=== PATIENT | male | born 1980 | race African-American/Black ===

== ENCOUNTER 2016-06-15 14:36 | Emergency (ER) | payer SELFPAY ==
[~2016-06-15] VITALS: Ht 188 cm; Wt 83.9 kg
--- NOTE | 2016-06-15 15:35 | Emergency Room Report ---
History of Present Illness General Chief Complaint: Behavioral Complaint Source: Patient Present Illness HPI This patient is brought in by [place]. They were called to the street because George was behaving bizarrely. Apparently he was rolling around in trash and dog poop. He is homeless. He has a history of schizophrenia. He's disorganized. He states that he made a mistake. He also took different doses of his medications. He states this includes ibuprofen and Trileptal. He also has PTSD. He has no specific complaints. Allergies: Coded Allergies: No Known Allergies (Unverified , 06/15/16) Patient History Past Medical History: seizures, psych hx - schizophrenia, PTSD, other Social History: Reports: alcohol use, drug use Reviewed Nursing Documentation: PMH: Agreed, PSxH: Agreed Nursing Documentation-PMH Past Medical History: No History, Except For History Of Psychiatric Problem: Yes - Schizophrenia Hx Seizures: Yes Review of Systems All Other Systems: negative except mentioned in HPI Physical Exam Vital Signs Date Time Temp Pulse Resp B/P Pulse Ox O2 Delivery O2 Flow Rate FiO2 06/15/16 14:45 98.1 96 18 121/74 97 Room Air Sp02 EP Interpretation: reviewed, normal General Appearance: no apparent distress, alert, GCS 15, non-toxic, other - Discheveled. In undergarments. Poor hygiene, dog poop on skin and in hair. Head: normocephalic, atraumatic Eyes: bilateral eye PERRL, bilateral eye normal inspection ENT: hearing grossly normal, normal pharynx, no angioedema, normal voice Neck: full range of motion, supple/symm/no masses Respiratory: chest non-tender, lungs clear, normal breath sounds, speaking full sentences Cardiovascular #1: regular rate, rhythm, no edema Gastrointestinal: normal bowel sounds, non tender, soft, non-distended, no guarding, no rebound Rectal: deferred Musculoskeletal: back normal, gait/station normal, normal range of motion, non- tender Neurologic: alert, oriented x3, responsive, motor strength/tone normal, sensory intact, speech normal Psychiatric: memory normal, other - disorganized thought and speech Skin: normal color, no rash, warm/dry, well hydrated Medical Decision Making Diagnostic Impression: Primary Impression: Drug abuse Additional Impression: Schizophrenia ER Course This patient presented with bizarre behavior. He was pleasant and compliant during his ED course. He was given a shower to clean him up and clean clothing and a meal. I did do basic labs to include CBC, CMP, urine drug screen and tox screen to include acetaminophen and salicylates. Other than the urine drug screen that is positive for amphetamines, the laboratory workup is benign. I suspect this is the medics of drug abuse and schizophrenia. The patient is not homicidal or suicidal. He is walking and ambulating without difficulty. He is requesting food. He is not in any distress. He was given the local psychiatric and drug rehabilitation resources and assisted information. At this time, I did not identify an emergency medical condition. Patient is educated on the dangers of drug abuse. He was given return precautions and followup instructions. Labs Test 06/15/16 15:30 06/15/16 16:16 White Blood Count 11.2 K/UL (4.8-10.8) Red Blood Count 4.51 M/UL (4.70-6.10) Hemoglobin 14.4 G/DL (14.2-18.0) Hematocrit 42.3 % (42.0-52.0) Mean Corpuscular Volume 94 FL (80-99) Mean Corpuscular Hemoglobin 31.9 PG (27.0-31.0) Mean Corpuscular Hemoglobin Concent 34.1 G/DL (32.0-36.0) Red Cell Distribution Width 11.9 % (11.6-14.8) Platelet Count 227 K/UL (150-450) Mean Platelet Volume 6.4 FL (6.5-10.1) Neutrophils (%) (Auto) 74.9 % (45.0-75.0) Lymphocytes (%) (Auto) 10.0 % (20.0-45.0) Monocytes (%) (Auto) 10.0 % (1.0-10.0) Eosinophils (%) (Auto) 3.9 % (0.0-3.0) Basophils (%) (Auto) 1.3 % (0.0-2.0) Sodium Level 138 mEQ/L (135-145) Potassium Level 4.0 mEQ/L (3.4-4.9) Chloride Level 98 mEQ/L (98-107) Carbon Dioxide Level 26 mEQ/L (20-30) Anion Gap 14 (5-15) Blood Urea Nitrogen 28 mg/dL (7-23) Creatinine 1.0 mg/dL (0.7-1.2) Estimat Glomerular Filtration Rate > 60 mL/min (>60) Glucose Level 128 mg/dL (74-106) Calcium Level 9.0 mg/dL (8.6-10.2) Total Bilirubin 0.6 mg/dL (0.0-1.2) Aspartate Amino Transf (AST/SGOT) 54 U/L (5-40) Alanine Aminotransferase (ALT/SGPT) 33 U/L (3-41) Alkaline Phosphatase 66 U/L (40-129) Total Protein 6.9 g/dL (6.6-8.7) Albumin 4.0 g/dL (3.5-5.2) Globulin 2.9 g/dL Albumin/Globulin Ratio 1.3 (1.0-2.7) Thyroid Stimulating Hormone (TSH) 0.370 uIU/mL (0.300-4.500) Salicylates Level < 1 mg/dL (10-30) Acetaminophen Level < 10 ug/mL (10-30) Serum Alcohol < 10 mg/dL Urine Opiates Screen Negative (NEGATIVE) Urine Barbiturates Screen Negative (NEGATIVE) Phencyclidine (PCP) Screen Negative (NEGATIVE) Urine Amphetamines Screen Positive (NEGATIVE) Urine Benzodiazepines Screen Negative (NEGATIVE) Urine Cocaine Screen Negative (NEGATIVE) Urine Marijuana (THC) Screen Negative (NEGATIVE) Last Vital Signs Date Time Temp Pulse Resp B/P Pulse Ox O2 Delivery O2 Flow Rate FiO2 06/15/16 14:45 98.1 96 18 121/74 97 Room Air Disposition: HOME, SELF-CARE Condition: Improved Referrals: NOT CHOSEN ABIMAEL/,REFERRING (PCP) Patient Instructions: Self-Destructive Behavior SHRUTHI ANDERSON D.O. Jun 15, 2016 15:35
[2016-06-15 15:51] VITALS: BP 125/75
[2016-06-15 15:55] LABS: BASOPHILS % (AUTO) 1.3 % (0.0-2.0); EOSINOPHILS % (AUTO) 3.9 % (0.0-3.0); MEAN CORPUSCULAR HEMOGLOBIN 31.9 PG (27.0-31.0); MEAN CORPUSCULAR HGB CONC 34.1 G/DL (32.0-36.0); MEAN CORPUSCULAR VOLUME 94 FL (80-99); MEAN PLATELET VOLUME 6.4 FL (6.5-10.1); NEUTROPHILS % (AUTO) 74.9 % (45.0-75.0); PLATELET COUNT 227 K/UL (150-450); RED BLOOD COUNT 4.51 M/UL (4.70-6.10); RED CELL DISTRIBUTION WIDTH 11.9 % (11.6-14.8); WHITE BLOOD COUNT 11.2 K/UL (4.8-10.8)
[2016-06-15 16:20] LABS: ACETAMINOPHEN < 10 ug/mL (10-30); ALANINE AMINOTRANSFERASE 33 U/L (3-41); ALBUMIN/GLOBULIN RATIO 1.3 (1.0-2.7); ALCOHOL < 10 mg/dL; ANION GAP 14 (5-15); ASPARTATE AMINO TRANSFERASE 54 U/L (5-40); CARBON DIOXIDE 26 mEQ/L (20-30); CHLORIDE 98 mEQ/L (98-107); GLOMERULAR FILTRATION RATE > 60 mL/min (>60); HEMOLYSIS 6; SODIUM 138 mEQ/L (135-145); TOTAL PROTEIN 6.9 g/dL (6.6-8.7)
[2016-06-15 17:48] VITALS: BP 122/72
== END 2016-06-15 17:50 | disposition home or self-care (01) ==
LOC: EDBD 14:36 → EMR 15:14
DX: F19.10 Other psychoactive substance abuse, uncomplicated (principal); F20.9 Schizophrenia, unspecified; R46.89 Other symptoms and signs involving appearance and behavior; Z59.0 Homelessness; F43.10 Post-traumatic stress disorder, unspecified
CPT/HCPCS: 36415; 80053; 80300; 84443; 85025; 99283; G0480; 80329

== ENCOUNTER 2016-12-27 22:06 | Emergency (ER) | payer OTHER ==
[~2016-12-27] VITALS: Ht 190.5 cm; Wt 90.7 kg
[2016-12-27 23:32] VITALS: BP 117/63
[2016-12-27] MEDS ORDERED: IBUPROFEN600 MG ORAL (23:48)
--- NOTE | 2016-12-27 23:48 | Emergency Room Report ---
History of Present Illness General Chief Complaint: General Complaint Source: Patient Present Illness HPI Is a 36-year-old male with no significant past medical history. He presents with chief when a sore throat. Denies any fever or chills. Does have congestion runny nose. Said he is hungry also. Denies any other complaint. Nothing made it better. Nothing made it worse. Onset for one day. Allergies: Coded Allergies: No Known Allergies (Unverified , 06/15/16) Patient History Past Medical History: see triage record, old chart reviewed Past Surgical History: other Pertinent Family History: none Immunizations: other Reviewed Nursing Documentation: PMH: Agreed, PSxH: Agreed Nursing Documentation-PMH Past Medical History: No History, Except For Hx Seizures: Yes Review of Systems Eye: Denies: blurred vision, eye pain ENT: Reports: nose congestion, throat pain, Denies: ear pain, throat swelling Respiratory: Denies: cough, shortness of breath Cardiovascular: Denies: chest pain, palpitations Gastrointestinal: Denies: abdominal pain, diarrhea, nausea, vomiting Musculoskeletal: Denies: back pain, joint pain Skin: Denies: rash Neurological: Denies: headache, numbness Endocrine: Denies: increased thirst, increased urine Hematologic/Lymphatic: Denies: easy bruising All Other Systems: negative except mentioned in HPI Physical Exam Vital Signs Date Time Temp Pulse Resp B/P Pulse Ox O2 Delivery O2 Flow Rate FiO2 12/27/16 22:46 97.5 80 16 138/90 100 Room Air vitals normal Sp02 EP Interpretation: reviewed, normal General Appearance: well appearing, no apparent distress, alert Head: normocephalic, atraumatic Eyes: bilateral eye EOMI, bilateral eye PERRL ENT: hearing grossly normal, normal pharynx Neck: full range of motion, supple, no meningismus Respiratory: chest non-tender, lungs clear, normal breath sounds Cardiovascular #1: regular rate, rhythm, no murmur Gastrointestinal: normal bowel sounds, non tender, no mass, no organomegaly, no bruit, non-distended Musculoskeletal: back normal, gait/station normal, normal range of motion Psychiatric: mood/affect normal Skin: warm/dry Medical Decision Making Diagnostic Impression: Primary Impression: Acute viral pharyngitis ER Course Patient presents with viral symptoms. Eating drinking without a problem. No evidence of retropharyngeal abscess or peritonsillar abscess. We'll discharge home. Last Vital Signs Date Time Temp Pulse Resp B/P Pulse Ox O2 Delivery O2 Flow Rate FiO2 12/27/16 23:32 97.5 70 16 117/63 99 Room Air Status: improved Disposition: HOME, SELF-CARE Condition: Stable Scripts Ibuprofen* (MOTRIN*) 600 Mg Tablet 600 MG ORAL THREE TIMES A DAY, #30 TAB 0 Refills Prov: MERVIN TARANGO M.D. 12/27/16 Referrals: NOT CHOSEN [facility]/,REFERRING (PCP) Additional Instructions: Followup with your Dr. 7 days. Return if worse. MERVIN TARANGO M.D. Dec 27, 2016 23:48
[2016-12-27 23:58] VITALS: BP 117/63
== END 2016-12-27 23:56 | disposition home or self-care (01) ==
LOC: EMR 22:59
DX: J02.8 Acute pharyngitis due to other specified organisms (principal); B97.89 Other viral agents as the cause of diseases classified elsewhere
CPT/HCPCS: 99283

== ENCOUNTER 2020-05-07 07:29 | Emergency (ER) | payer MEDICAID, OTHER ==
[~2020-05-07] VITALS: Ht 185.4 cm; Wt 90.7 kg
[~2020-05-07 07:29] MED LIST: ARIPiprazole 10mg tab ORAL SCH; IBUPROFEN600 MG ORAL
[2020-05-07 08:00] VITALS: BP 147/68
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
[2020-05-07 08:41] LABS: ANION GAP 10 mmol/L (5-15); BLOOD UREA NITROGEN 19 mg/dL (7-18); CALCIUM 8.8 MG/DL (8.5-10.1); CARBON DIOXIDE 25 MMOL/L (21-32); CHLORIDE 103 MMOL/L (98-107); POTASSIUM 3.8 MMOL/L (3.5-5.1); SODIUM 138 MMOL/L (136-145)
[2020-05-07 08:45] LABS: BASOPHILS % (AUTO) 1.5 % (0.0-2.0); EOSINOPHILS % (AUTO) 4.7 % (0.0-3.0); HEMATOCRIT 42.5 % (42.0-52.0); HEMOGLOBIN 14.6 G/DL (14.2-18.0); LYMPHOCYTES % (AUTO) 24.2 % (20.0-45.0); MEAN CORPUSCULAR VOLUME 91 FL (80-99); MONOCYTES % (AUTO) 7.4 % (1.0-10.0); NEUTROPHILS % (AUTO) 62.2 % (45.0-75.0); PLATELET COUNT 288 K/UL (150-450); RED BLOOD COUNT 4.67 M/UL (4.70-6.10); RED CELL DISTRIBUTION WIDTH 12.7 % (11.6-14.8); WHITE BLOOD COUNT 7.5 K/UL (4.8-10.8)
[2020-05-07 08:55] LABS: ALANINE AMINOTRANSFERASE 71 U/L (12-78); ALBUMIN 3.8 G/DL (3.4-5.0); ALBUMIN/GLOBULIN RATIO 0.9 (1.0-2.7); ALKALINE PHOSPHATASE 79 U/L (46-116); ASPARTATE AMINO TRANSFERASE 48 U/L (15-37); BILIRUBIN,TOTAL 0.7 MG/DL (0.2-1.0); CREATINE KINASE 741 U/L (26-308)
[2020-05-07 11:25] VITALS: BP 143/67
[2020-05-07] MEDS ORDERED: ABILIFY10 MG ORAL (12:13)
[2020-05-07] MEDS ORDERED: LEXAPRO5 MG ORAL (12:13)
[2020-05-07 13:41] VITALS: BP 132/87
== END 2020-05-07 13:44 | disposition other institution (70) ==
LOC: EMR 07:54
DX: F15.10 Other stimulant abuse, uncomplicated (principal); F12.10 Cannabis abuse, uncomplicated; F14.10 Cocaine abuse, uncomplicated; F10.10 Alcohol abuse, uncomplicated; I10 Essential (primary) hypertension; G40.909 Epilepsy, unspecified, not intractable, without status epilepticus; F17.200 Nicotine dependence, unspecified, uncomplicated; Y90.0 Blood alcohol level of less than 20 mg/100 ml
CPT/HCPCS: 36415; 80053; 80307; 82550; 84443; 85025; 93005; 96360; G0480; G0481; J7030; Z7502; 99284